=== PATIENT | female | born 1995 | race Caucasian/White ===

== ENCOUNTER → 2018-09-16 | Outpatient (CLI) | payer BC ==
[2018-09-16 10:54] LABS: BASO % 0.1 % (0.0-1.0); EOS # 0.1 10^3/uL (0.0-0.50); HEMATOCRIT 35.1 % (36.0-47.0); IMMATURE GRANULOCYTE % 0.5 % (0-3.0); LYMPH # 0.8 10^3/uL (1.5-6.5); LYMPH % 9.8 % (24.0-44.0); MEAN CORPUSCULAR HEMOGLOBIN 29.9 pg (27.0-33.0); MEAN CORPUSCULAR HGB CONC 34.2 g/dl (32.0-36.5); MEAN CORPUSCULAR VOLUME 87.3 fl (80.0-96.0); MONO # 0.6 10^3/uL (0.0-0.8); MONO % 7.2 % (0.0-5.0); NEUTROPHILS # 6.8 10^3/uL (1.8-7.7); NEUTROPHILS % 81.4 % (36.0-66.0); PLATELET COUNT, AUTOMATED 164 10^3/uL (150-450); RED BLOOD COUNT 4.02 10^6/uL (4.00-5.40); RED CELL DISTRIBUTION WIDTH 13.1 % (11.5-14.5); WHITE BLOOD COUNT 8.4 10^3/uL (4.0-10.0)
[2018-09-16 12:11] LABS: HBsAg Prenatal NEGATIVE (NEGATIVE); HIV 1&2 SCREEN CENTAUR NEGATIVE (NEGATIVE); RUBELLA IgG QUALITATIVE IMMUNE (IMMUNE)
[2018-09-16 13:43] LABS: CHLAMYDIA DNA AMPLIFICATION NEGATIVE (NEGATIVE); GC DNA AMPLIFICATION NEGATIVE (NEGATIVE)
== END ==
LOC: M LAB 09:52
DX: Z34.82 Encounter for supervision of other normal pregnancy, second trimester (principal); Z36.89 Encounter for other specified antenatal screening
CPT/HCPCS: 86762

== ENCOUNTER → 2018-10-07 | Outpatient (CLI) | payer BC | LOC: M SMT 13:05 | DX: Z34.82 Encounter for supervision of other normal pregnancy, second trimester (principal); Z3A.19 19 weeks gestation of pregnancy | CPT/HCPCS: 76811 ==

== ENCOUNTER → 2018-12-11 | Outpatient (CLI) | payer BC, MEDICAID ==
[2018-12-11 13:53] LABS: HEMATOCRIT 35.8 % (36.0-47.0); HEMOGLOBIN 11.9 g/dl (12.0-15.5); MEAN CORPUSCULAR HEMOGLOBIN 29.7 pg (27.0-33.0); MEAN CORPUSCULAR HGB CONC 33.2 g/dl (32.0-36.5); MEAN CORPUSCULAR VOLUME 89.3 fl (80.0-96.0); PLATELET COUNT, AUTOMATED 180 10^3/uL (150-450); RED BLOOD COUNT 4.01 10^6/uL (4.00-5.40); WHITE BLOOD COUNT 9.1 10^3/uL (4.0-10.0)
== END ==
LOC: M LAB 11:54
PROVIDERS: ATTEND Advanced Practice Midwife
DX: Z34.02 Encounter for supervision of normal first pregnancy, second trimester (principal)
CPT/HCPCS: 36415; 82950; 85027; 86850; 86900; 86901; J2790

== ENCOUNTER → 2019-02-06 | Outpatient (REF) | payer OTHER, MEDICAID | LOC: M LAB REF 16:58 | PROVIDERS: ATTEND Obstetrics & Gynecology | DX: Z34.03 Encounter for supervision of normal first pregnancy, third trimester (principal); Z3A.00 Weeks of gestation of pregnancy not specified ==

== ENCOUNTER 2019-03-07 05:08 | Inpatient (IN) | payer OTHER, MEDICAID ==
[2019-03-07] VITALS (21 sets, daily range): BP systolic 95–155; BP diastolic 54–82
[~2019-03-07] VITALS: Ht 170.2 cm; Wt 71.7 kg
[2019-03-07] MEDS ORDERED: LACTATED RINGER'S 1000 ML IV STA (06:32)
[2019-03-07 08:07] LABS: HEMATOCRIT 36.9 % (36.0-47.0); HEMOGLOBIN 12.4 g/dl (12.0-15.5); MEAN CORPUSCULAR HEMOGLOBIN 28.4 pg (27.0-33.0); MEAN CORPUSCULAR HGB CONC 33.6 g/dl (32.0-36.5); MEAN CORPUSCULAR VOLUME 84.6 fl (80.0-96.0); PLATELET COUNT, AUTOMATED 191 10^3/uL (150-450); RED BLOOD COUNT 4.36 10^6/uL (4.00-5.40); WHITE BLOOD COUNT 13.4 10^3/uL (4.0-10.0)
[2019-03-07] MEDS ORDERED: LR 1,000 ML IV SCH (08:24)
[2019-03-07] MEDS ORDERED: OXYTOCIN DRIP 30 UNITS in APPROPRIATE DILUENT 1 EA IV SCH ×2 (08:30→17:39)
[2019-03-07] MEDS: LR 1,000 ML IV SCH ×2 (08:55→11:46)
[2019-03-07] MEDS ORDERED: ONDANSETRON 4MG/2ML VIAL (J2405) IV ONE (09:00)
[2019-03-07] MEDS ORDERED: FENTANYL 2MCG/ML ROPIVACAINE 0.2% IN 0.9% NACL 100ML IVBAG As Ordered ONE (09:23)
[2019-03-07] MEDS ORDERED: ePHEDrine SULFATE 25 MG/5 ML(5MG/ML) SYRINGE IV PRN (10:30)
[2019-03-07] MEDS ORDERED: LACTATED RINGER'S 1000 ML IV PRN (10:30)
[2019-03-07] MEDS ORDERED: FENTANYL/ROPIVACAINE/NACL BAG 100 ML EPIDURAL SCH (10:30)
[2019-03-07] MEDS ORDERED: EPIDURAL/PCA KEYS XX PRN (10:30)
[2019-03-07] MEDS ORDERED: EPIDURAL COMMENT XX SCH (10:30)
[2019-03-07] MEDS ORDERED: ONDANSETRON 4MG/2ML VIAL (J2405) IV PRN (10:30)
[2019-03-07] MEDS ORDERED: NALOXONE INJ 0.4 MG/1 ML VIAL (J2310) IV PRN (10:30)
[2019-03-07] MEDS ORDERED: diphenhydrAMINE INJ 50MG/ML VIAL (J1200) IV PRN (10:30)
[2019-03-07] MEDS ORDERED: REFRIGERATOR IV KEYS XX PRN (10:30)
[2019-03-07 17:08] LABS: CORD GAS ABE V -8.2; CORD GAS HCO3 V 16.4 MEQ/L; CORD GAS O2 SAT V 47.2 %; CORD GAS PCO2 V 31.6 mmHg; CORD GAS PH V 7.333 UNITS; CORD GAS PO2 V 23.6 mmHg; CORD GAS SBC V 16.9 MEQ/L; CORD GAS TCO2 V 17.4 MEQ/L
[2019-03-07 17:11] LABS: CORD GAS ABE A -13.6; CORD GAS PCO2 A 27.4 mmHg; CORD GAS PH A 7.26 UNITS; CORD GAS PO2 A 17.9 mmHg; CORD GAS SBC A 12.7 MEQ/L; CORD GAS TCO2 A 12.9 MEQ/L
[2019-03-07] MEDS ORDERED: MEASLES,MUMPS,RUBELLA VACCINE INJ (MMR-II) (90707) SC SCH (17:45)
[2019-03-07] MEDS ORDERED: RHOGAM 300 MCG (1500 IU) INJ (J2790) IM SCH (17:45)
[2019-03-07] MEDS ORDERED: METHYLERGONOVINE MALEATE 0.2 MG TAB PO PRN (17:45)
[2019-03-07] MEDS ORDERED: DIBUCAINE 1% OINTMENT 30GM TOP PRN (17:45)
[2019-03-07] MEDS ORDERED: DOCUSATE SODIUM 100 MG CAP PO PRN (17:45)
--- NOTE | 2019-03-07 18:09 | DN ---
DATE: 03/07/2019 Elian is a 24-year-old 1, para 1-0-0-1 now who was admitted to labor and delivery in active labor with spontaneous rupture of membranes. She did use an epidural for labor coping. IV Pitocin was started to augment her labor. She reached full dilation at 1550. It was noted that she had thick meconium at the onset of second stage. Dr. Chávez was paged and was present for delivery. She pushed to a normal spontaneous vaginal delivery of a live male in occiput anterior (OA) position with restitution to right occiput posterior (ROT) position over a midline episiotomy at 1639. There was no nuchal cord. The shoulders delivered spontaneously and the corpus immediately followed. The male was placed on the maternal abdomen. The cord was clamped and cut by myself and the was taken immediately to the warmer for evaluation by Dr. Chávez. Blood and cord gases were obtained. Arterial cord pH 7.260, base excess -13.6. Venous cord pH 7.333, base excess -8.2. Spontaneous expulsion of an intact placenta with three-vessel cord by Strong mechanism was at 1643. Uterine hemostasis was achieved with IV Pitocin rapid infusion and uterine fundal massage. Estimated blood loss 400 mL. Perineum and vagina inspected, Noted to have second-degree midline laceration as well as the midline episiotomy. Noted at that anterior wall of the vagina was oozing. The second-degree laceration and episiotomy was repaired with 3-0 Rapide in the usual fashion. Two interrupted sutures in the tissue of the anterior wall oozing were placed. There continued oozing so vaginal packing was placed. [place] male weighed 7 pounds, 4 ounces, 3290 grams, 7 and 9. Mother is planning to breastfeed him and his name is Miguelito. At the close of delivery, lap counts, needle counts and instrument counts were correct and verified. [facility]
[2019-03-07] MEDS: ACETAMINOPHEN 500 MG TAB PO PRN (21:28)
[2019-03-08] MEDS: IBUPROFEN 800 MG TAB PO PRN ×2 (02:38→19:23)
[2019-03-08] MEDS ORDERED: ANUSOL HC CREAM 30GM TOP PRN (02:45)
[2019-03-08 06:34] VITALS: BP 99/55
[2019-03-08] MEDS: ACETAMINOPHEN 500 MG TAB PO PRN ×2 (09:35→18:22)
[2019-03-08] MEDS: PRENATAL VITAMINS CHEWABLE TABLET PO SCH (09:36)
[2019-03-08 17:49] VITALS: BP 105/67
[2019-03-09 06:00] VITALS: BP 116/79
[2019-03-09] MEDS ORDERED: IBUP-1114 PO (07:47)
[2019-03-09] MEDS ORDERED: MAPA500T2 PO (07:47)
[2019-03-09] MEDS: PRENATAL VITAMINS CHEWABLE TABLET PO SCH (08:26)
== END 2019-03-09 10:20 | disposition home or self-care (01) | DRG 560 ==
LOC: M LDO 05:08 → M LDI 06:21 → M OBS 20:50
PROVIDERS: ADMIT Obstetrics & Gynecology; ATTEND Advanced Practice Midwife
PROC: 10E0XZZ Delivery of Products of Conception, External Approach (ICD-10-PCS; principal; 2019-03-07)
PROC: 0KQM0ZZ Repair Perineum Muscle, Open Approach (ICD-10-PCS; 2019-03-07)
PROC: 0W8NXZZ Division of Female Perineum, External Approach (ICD-10-PCS; 2019-03-07)
DX: O48.0 Post-term pregnancy (principal); O77.0 Labor and delivery complicated by meconium in amniotic fluid; Z3A.40 40 weeks gestation of pregnancy; Z37.0 Single live birth; O70.1 Second degree perineal laceration during delivery

== ENCOUNTER → 2019-06-03 | Outpatient (REF) | payer OTHER, MEDICAID ==
[~2019-06-03] MED LIST: IBUP-1114 PO; MAPA500T2 PO
[2019-06-10 14:07] LABS: HPV HYBRID CAPTURE II Negative (Negative)
== END ==
LOC: M LAB REF 13:36
PROVIDERS: ATTEND Advanced Practice Midwife
DX: Z12.4 Encounter for screening for malignant neoplasm of cervix (principal)

== ENCOUNTER → 2019-10-28 | Outpatient (REF) | payer OTHER, MEDICAID | LOC: M LAB REF 18:28 | PROVIDERS: ATTEND Dermatology | DX: D48.9 Neoplasm of uncertain behavior, unspecified (principal) ==

== ENCOUNTER → 2019-11-28 | Outpatient (REF) | payer OTHER, MEDICAID ==
[2019-11-28 13:55] LABS: FREE T4 0.84 NG/DL (0.76-1.46); THYROID STIMULATING HORMONE 2.36 uIU/ML (0.358-3.740)
== END ==
LOC: M LAB REF 12:25
PROVIDERS: ATTEND Nurse Practitioner Family
DX: R79.89 Other specified abnormal findings of blood chemistry (principal)